=== PATIENT | female | born 1985 | race Caucasian/White ===

== ENCOUNTER 2019-12-30 16:52 | Observation (INO) | payer OTHER, SELFPAY ==
[2019-12-30 17:23] VITALS: BP 90/78; PULSE 104
[2019-12-30 17:31] VITALS: BP 101/60; PULSE 92
[2019-12-30 17:42] LABS: Add Urine Microscopic? YES; Appearance Urine Cloudy (Clear); Bacteria Urine 4+ /hpf; Bilirubin Urine Negative (Negative); Blood Urine Negative (Negative); Color Urine Yellow (Yellow); Glucose Urine UA Negative (Negative); Ketones Urine Negative (Negative); Leukocyte Esterase Ur 2+ LEU/UL (Negative); Nitrate Urine Negative (Negative); Protein Urine Negative (Negative); Specific Grav Ur 1.008 (1.001-1.035); Squamous Epithelial Cell Urine Many /hpf (Few); Urobilinogen Urine Negative mg/dL (<2.0)
[2019-12-30 17:43] VITALS: BMI 49.4
[2019-12-30 18:01] VITALS: BP 107/72; PULSE 92
[2019-12-30 18:21] VITALS: BP 102/54; PULSE 83
[2019-12-30 18:29] VITALS: TEMP 36.8
[2019-12-30 19:47] LABS: Fetal Fibronectin Negative
[2019-12-30] MEDS: NITROFURANTOIN MONOHYD MACROCR 100 MG CAP PO (21:03)
--- NOTE | 2019-12-31 04:06 | PC.NURSE ---
203912/30/19 Pt contractions resolved. Pt voices no complaints.
--- NOTE | 2019-12-31 04:08 | PC.NURSE ---
205412/30/19 Results and update to Dr. Bhakta.
--- NOTE | 2020-01-11 13:00 | PM.OBTRLD ---
OB - Triage/Final Diagnosis Evaluation Laboratory results: Laboratory Tests 12/30/19 12/30/19 17:29 17:59 Urine Color Yellow Urine Appearance Cloudy H Urine pH 6.0 Ur Specific [place] 1.008 Urine Protein Negative Urine Glucose (UA) Negative Urine Ketones Negative Ur Blood (Man) Negative Urine Nitrate Negative Urine Bilirubin Negative Urine Urobilinogen Negative Leukocyte Esterase Rfl 2+ H Urine RBC 6-10 H Urine WBC 7-9 H Ur Squamous Epith Cells Many H Urine Bacteria 4+ H Fibronectin Negative Final Diagnosis (1) Pelvic pain affecting : Code(s): O26.899 - Other specified related conditions, unspecified trimester; R10.2 - Pelvic and perineal pain Status: Acute (2) UTI (urinary tract infection) during : Code(s): O23.40 - Unspecified infection of urinary tract in , unspecified trimester Status: Acute
== END 2019-12-30 21:20 | disposition home or self-care (01) ==
PROVIDERS: Admitting Provider Obstetrics & Gynecology; PCP Internal Medicine; Visit Provider Obstetrics & Gynecology
DX: O26.892 Other specified pregnancy related conditions, second trimester (principal); R10.2 Pelvic and perineal pain; O23.43 Unspecified infection of urinary tract in pregnancy, third trimester; Z3A.31 31 weeks gestation of pregnancy
CPT/HCPCS: 81001; 82731; 87086; 87088; A9270; G0378; G0379

== ENCOUNTER 2020-01-26 11:24 | Outpatient (RCR) | payer OTHER, SELFPAY ==
[2020-01-08 08:15] VITALS: BP 119/63; PULSE 102
[2020-01-10 08:53] VITALS: BP 127/71; PULSE 107
[2020-01-15 08:06] VITALS: BP 135/86; PULSE 100
[2020-01-22 09:20] VITALS: BP 134/72; PULSE 82
--- NOTE | ~2020-01-26 | US_ITS ---
EXAMINATION: US OB BPP wo non-stress EXAM DATE: 01/26/2020 12:22 INDICATION: Gestational diabetes. 3rd trimester. TECHNIQUE: Pelvic obstetrical transabdominal sonogram was performed by a technologist. There are mu ltiple grayscale and Doppler images available for interpretation. Comparison is made to prior examina tion from 01/22/2020. FINDINGS: There is a single fetus identified in vertex presentation with a heart rate of 154 beats pe r minute. The placenta is located in the anterior position. There is no sonographic evidence of retr oplacental hemorrhage identified. BIOPHYSICAL PROFILE (performed by the technologist) breathing (30 sec sustained breathing in 30 minutes): 2 out of 2 movement (3 gross body movements in 30 minutes): 2 out of 2 tone (one episode of uqhftha-ybfhfyakl-kycukfv limb movement): 2 out of 2 Amniotic fluid pocket (2 cm): 2 out of 2 Total score: 8 out of 8 IMPRESSION: 1. Single fetus with heart rate of 154 bpm. 2. Normal biophysical profile score of 8 out of 8. Reviewed, dictated and finalized at location A. RAL CLAIMS AGENT
--- NOTE | ~2020-01-26 | US_ITS ---
US OB BPP wo non-stress DATE: 01/22/2020 09:06 INDICATION: Type 2 diabetes TECHNIQUE: Real-time imaging and Doppler analysis COMPARISON: None FINDINGS: Live dominguez intrauterine gestation, fetus in vertex presentation, longitudinal lie. Feta l heart rate of 135 bpm. Anterior placenta. Subjectively normal amount of amniotic fluid. Amniotic fl uid pocket of up to 4.6 cm is noted. BIOPHYSICAL PROFILE reported by aerospace physiological technician: breathin out of 2 movement: 2 out of 2 tone: 2 out of 2 Amniotic fluid pocket: 2 out of 2 Total score: 8 out of 8 IMPRESSION: Normal biophysical profile score of 8 out of 8 Reviewed, dictated and finalized at Location A. Reviewed, dictated and finalized at location B. D SUPERVISOR
[2020-01-26 11:57] VITALS: BP 133/74
== END 2020-02-11 07:37 | disposition home or self-care (01) ==
LOC: ANHOBOP 11:24
PROVIDERS: PCP Internal Medicine; Visit Provider Obstetrics & Gynecology
DX: O09.293 Supervision of pregnancy with other poor reproductive or obstetric history, third trimester (principal); Z3A.32 32 weeks gestation of pregnancy; Z3A.33 33 weeks gestation of pregnancy; O24.419 Gestational diabetes mellitus in pregnancy, unspecified control; O36.63X0 Maternal care for excessive fetal growth, third trimester, not applicable or unspecified; Z3A.34 34 weeks gestation of pregnancy
CPT/HCPCS: 59025; 76819

== ENCOUNTER 2020-01-27 17:03 | Outpatient (CLI) | payer OTHER, SELFPAY ==
[2020-01-27 17:31] VITALS: BP 120/82; PULSE 103
[2020-01-27 17:46] VITALS: BP 116/77; PULSE 98
[2020-01-27 17:59] LABS: Basophils Percent Auto 0.3 % (0.2-1.2); Eosinophils Absolute Auto 0.1 K/mm3 (0-0.3); Eosinophils Percent Auto 1.1 % (0-4.4); Hematocrit 30.1 % (37.0-47.0); Hemoglobin 9.7 g/dL (12.0-15.0); Immature Granulocyte Absolute 0.05 K/mm3 (0.00-0.031); Immature Granulocyte Percent A 0.4 % (0-0.5); Lymphocytes Absolute Auto 2.82 K/mm3 (0.9-3.2); Lymphocytes Percent Auto 24.7 % (18.3-44.2); Mean Corpuscular HGB Conc 32.2 g/dl (32-36); Mean Corpuscular Hemoglobin 27.9 pg (26-34); Mean Corpuscular Volume 86.5 fl (80-100); Mean Platelet Volume 10.7 fl (7.4-10.4); Monocytes Absolute Auto 0.5 K/mm3 (0.1-0.6); Monocytes Percent Auto 4.7 % (2.6-8.5); Neutrophils Absolute Auto 7.9 K/mm3 (1.3-6.7); Neutrophils Percent Auto 68.8 % (45.5-73.1); Platelet Count Result 287 k/mm3 (150-375); Red Blood Count 3.48 M/mm3 (4.2-5.4); Red Cell Distribution Width 15.3 % (11.5-14.5); White Blood Count 11.4 K/mm3 (4.5-10.0)
[2020-01-27 18:01] VITALS: BP 130/82; PULSE 96
[2020-01-27 18:08] LABS: Add Urine Microscopic? YES; Appearance Urine Cloudy (Clear); Bacteria Urine 3+ /hpf; Bilirubin Urine Negative (Negative); Blood Urine 2+ (Negative); Color Urine Yellow (Yellow); Glucose Urine UA Negative (Negative); Ketones Urine Trace mg/dL (Negative); Leukocyte Esterase Ur 3+ LEU/UL (NEGATIVE); Mucus Urine Heavy /lpf; Nitrate Urine Negative (Negative); Protein Urine 2+ mg/dL (Negative); Specific Grav Ur 1.026 (1.001-1.035); Squamous Epithelial Cell Urine Many /hpf (Few); Urobilinogen Urine Negative mg/dL (<2.0); WBC Clumps Urine Present /HPF; WBC Urine >75 /hpf (0-3)
[2020-01-27 18:14] LABS: Alanine Aminotransferase 10 U/L (4-35); Albumin Level 3.3 g/dL (3.5-5.1); Alkaline Phosphatase 165 U/L (38-126); Anion Gap 10 mmol/L (8-16); Aspartate Amino Transferase 16 U/L (14-36); Bilirubin,Total 0.2 mg/dL (0.2-1.3); Blood Urea Nitrogen 7 mg/dL (7-17); Calcium 8.6 mg/dL (8.4-10.2); Carbon Dioxide 20 mmol/L (22-30); Chloride 106 mmol/L (98-107); Estimated Glomerular Filt Rate > 60; Glucose 137 mg/dL (65-105); Potassium 3.7 mmol/L (3.4-5.0); Sodium 136 mmol/L (137-145); Uric Acid 5.3 mg/dL (2.5-7.5)
[2020-01-27 18:16] VITALS: BP 129/78; PULSE 91
[2020-01-27 18:31] VITALS: BP 130/81; PULSE 96
[2020-01-27 19:01] VITALS: BP 115/75; PULSE 82
[2020-01-27 19:01] LABS: Total Protein Urine Random 11 mg/dL
[2020-01-27 19:03] LABS: Creatinine Urine 70.7 mg/dL
== END 2020-01-27 19:35 | disposition home or self-care (01) ==
LOC: ANHOBOP 17:08 → ANHOBPP 17:09
PROVIDERS: PCP Internal Medicine; Visit Provider Obstetrics & Gynecology
DX: O13.3 Gestational [pregnancy-induced] hypertension without significant proteinuria, third trimester (principal); Z3A.35 35 weeks gestation of pregnancy
CPT/HCPCS: 36415; 59025; 80053; 81001; 82570; 84156; 84550; 85025; 87086; 99199

== ENCOUNTER 2020-01-28 05:55 | Outpatient (CLI) | payer OTHER, SELFPAY ==
[2020-01-28] VITALS (11 sets, daily range): BP systolic 118–143; BP diastolic 65–88; PULSE 81–93
== END 2020-01-28 10:25 | disposition home or self-care (01) ==
LOC: ANHOBOP 06:01 → ANHOBPP 08:00
PROVIDERS: PCP Internal Medicine; Visit Provider Obstetrics & Gynecology
DX: R51.9 Headache, unspecified (principal); O13.9 Gestational [pregnancy-induced] hypertension without significant proteinuria, unspecified trimester; Z3A.00 Weeks of gestation of pregnancy not specified
CPT/HCPCS: 59025; 99199

== ENCOUNTER 2020-02-10 07:41 | Inpatient (IN) | payer OTHER, SELFPAY ==
[2020-02-10] VITALS (49 sets, daily range): BP systolic 117–140; BP diastolic 68–99; PULSE 56–145; RESP 13–18; TEMP 36.1–36.8; O2SAT 92–100; BMI 50.3
[2020-02-10 08:48] LABS: Basophils Percent Auto 0.4 % (0.2-1.2); Eosinophils Absolute Auto 0.2 K/mm3 (0-0.3); Eosinophils Percent Auto 2.1 % (0-4.4); Hematocrit 33.6 % (37.0-47.0); Hemoglobin 10.8 g/dL (12.0-15.0); Immature Granulocyte Absolute 0.04 K/mm3 (0.00-0.031); Immature Granulocyte Percent A 0.4 % (0-0.5); Lymphocytes Absolute Auto 2.42 K/mm3 (0.9-3.2); Lymphocytes Percent Auto 23.4 % (18.3-44.2); Mean Corpuscular HGB Conc 32.1 g/dl (32-36); Mean Corpuscular Hemoglobin 28.2 pg (26-34); Mean Corpuscular Volume 87.7 fl (80-100); Monocytes Absolute Auto 0.5 K/mm3 (0.1-0.6); Monocytes Percent Auto 5.1 % (2.6-8.5); Neutrophils Absolute Auto 7.1 K/mm3 (1.3-6.7); Neutrophils Percent Auto 68.6 % (45.5-73.1); Platelet Count Result 277 k/mm3 (150-375); Red Blood Count 3.83 M/mm3 (4.2-5.4); White Blood Count 10.4 K/mm3 (4.5-10.0)
[2020-02-10 09:01] LABS: Alanine Aminotransferase 11 U/L (4-35); Albumin Level 3.3 g/dL (3.5-5.1); Alkaline Phosphatase 173 U/L (38-126); Anion Gap 6 mmol/L (8-16); Aspartate Amino Transferase 19 U/L (14-36); Bilirubin,Total 0.4 mg/dL (0.2-1.3); Blood Urea Nitrogen 10 mg/dL (7-17); Calcium 8.6 mg/dL (8.4-10.2); Carbon Dioxide 23 mmol/L (22-30); Chloride 107 mmol/L (98-107); Estimated CRCL calculation 134 ml/min; Estimated Glomerular Filt Rate > 60; Glucose 88 mg/dL (65-105); Sodium 136 mmol/L (137-145)
--- NOTE | 2020-02-10 09:12 | WPDANESEPPF ---
Anes - Initial Pre Proc Eval Procedure: Operation Date: 02/10/20 10:30 Proposed Procedures p Primary Section - Bren Bhakta MD Date/Time: 02/10/20 09:12 Surgeon: Bren Bhakta MD Pre Op Diagnosis: scheduled c/section Patient Data Age: 34 Gender: F Height: 1.63 m Weight: 133 kg Last Vital Signs Pulse 82 02/10/20 08:16 BP 132/75 02/10/20 08:16 Allergies Allergy/AdvReac Type Severity Reaction Status Date / Time No Known Allergies Allergy Unknown Verified 01/23/16 13:21 Home Medications Medication Instructions Recorded Confirmed Type Chewable Iron 1 tablet PO DAILY 12/30/19 02/10/20 History Daily 1 tablet PO DAILY 12/30/19 02/10/20 History Humulin N NPH Insulin KwikPen 8 unit SUBCUT QAM 12/30/19 02/10/20 History Humulin N NPH Insulin KwikPen 46 unit SUBCUT HS 12/30/19 02/10/20 History aspirin 1 tablet PO DAILY 12/30/19 01/28/20 History insulin lispro 6 unit SUBCUT QAM 12/30/19 02/10/20 History insulin lispro 8 unit SUBCUT QACDINNER 12/30/19 02/10/20 History insulin lispro 8 unit SUBCUT QACLUNCH 12/30/19 02/10/20 History metformin 1,000 mg PO BID 12/30/19 02/10/20 History Laboratory Tests 02/10/20 02/10/20 02/10/20 08:40 08:40 08:40 WBC Pending RBC Pending Hgb Pending Hct Pending MCV Pending MCH Pending MCHC Pending RDW Pending Plt Count Pending MPV Pending Immature Gran % (Auto) Pending Neut % (Auto) Pending Lymph % (Auto) Pending [place] % (Auto) Pending Eos % (Auto) Pending Baso % (Auto) Pending Lymph # (Auto) Pending [place] # (Auto) Pending Eos # (Auto) Pending Baso # (Auto) Pending Abs Immat Gran (auto) Pending Absolute Neuts (auto) Pending Absolute Nucleated RBC Pending Nucleated RBC % Pending Sodium 136 mmol/L L mmol/L (137-145) Potassium 4.0 mmol/L mmol/L (3.4-5.0) Chloride 107 mmol/L mmol/L (98-107) Carbon Dioxide 23 mmol/L mmol/L (22-30) Anion Gap 6 mmol/L L mmol/L (8-16) BUN 10 mg/dL mg/dL (7-17) Creatinine 0.70 mg/dL mg/dL (0.7-1.0) Estim Creat Clear Calc 134 ml/min ml/min Estimated GFR > 60 (59 - ) Glucose 88 mg/dL mg/dL (65-105) Calcium 8.6 mg/dL mg/dL (8.4-10.2) Total Bilirubin 0.4 mg/dL mg/dL (0.2-1.3) AST 19 U/L U/L (14-36) ALT 11 U/L U/L (4-35) Alkaline Phosphatase 173 U/L H U/L (38-126) Total Protein 7.0 g/dL g/dL (6.3-8.2) Albumin 3.3 g/dL L g/dL (3.5-5.1) RPR Pending Patient hx anesthesia problems: none Family hx anesthesia problems: none PMFSH Past Medical History Medical History (Updated 02/10/20 @ 09:17 by Ishan Gold MD) macrosomia GDM (gestational diabetes mellitus) Family History Family History Mother Diabetes mellitus Social History Social History Smoking status: Never smoker Second hand tobacco smoke exposure: No Substance use: never Gender identity (if verbalized by the patient): Female Sexual Orientation (if Verbalized by the Patient): Straight or Heterosexual Spiritual care concerns: No Anes - Eval Final PreProcedure Day of Procedure 02/10/20 09:12 Patient weight: obese Heart: regular rate and rhythm Lungs: clear to auscultation and normal air movement Airway: Mallampati scale class II Neurological: alert and oriented Last oral intake: >/= 8 hours ASA classification: III Emergent: no Anesthetic plan: proceed Anesthesia type and monitoring: regional spinal Informed Consent: The patient's anesthetic plan and its attendant risks and bene
--- NOTE | 2020-02-10 09:16 | LDADM ---
This patient, Fernanda Louise, was admitted to Labor/Delivery/Recovery 119 on 02/10/20 at 07:41. Plans for labor, pain management and were discussed with patient. Patient/family oriented to hospital policies and general routines including ID bracelet, bed and alarms, visiting hours, pain management, procedures, bathroom and other care routines, personal items, smoking policy, room service/diet and guest tray routines, infant security routines, and visiting hours. Patient/Family are encouraged to report perceived risks to care and to ask questions if they do not understand what they are told or what they should do. See OBIX for further documentation.
[2020-02-10] MEDS: LACTATED RINGERS 1,000 ML 999 ML IV CONT (09:19)
[2020-02-10] MEDS: LACTATED RINGERS 1,000 ML 125 ML IV CONT ×2 (09:35→16:45)
--- NOTE | 2020-02-10 09:55 | PM.IMHP ---
H&P: HPI History of Present Illness Date/Time: 02/10/20 09:55 Chief complaint: scheduled c/section Narrative: Fernanda Louise is a 34 yo @ 37.0wks ([place] 03/02/20) who presents for scheduled primary c/s. She has uncontrolled type 2 DM; on insulin. She has been following with [facility] where growth US on 02/05/20 showed EFW 4649g. She is also a gestational hypertensive. She has been undergoing routine testing with reassuring findings. Her is complicated by: - T2DM on meds: metformin 1000mg BID, NPH 8 qAM + 42 qhs, Lispro - Macrosomic fetus; EFW of 4649g on 02/05/20 - Gestational hypertension - Morbid obesity; BMI 51 - Left pyelectasis measuring 11mm Review of Systems Constitutional: Constitutional: Denies body ache(s) and Denies fever(s) Eyes: Eyes: Denies blurry vision Cardiovascular: Cardiovascular: Denies chest pain and Denies rapid heart rate Respiratory: Respiratory: Denies cough and Denies dyspnea Gastrointestinal: Gastrointestinal: Denies abdominal pain, Denies nausea and Denies vomiting Genitourinary: Genitourinary: Denies abnormal vaginal bleeding and Denies vaginal discharge Neurologic: Denies headache(s) Psychiatric: Psychiatric: Denies anxiety [facility] Past Medical History Medical History macrosomia GDM (gestational diabetes mellitus) Family History Family History Mother Diabetes mellitus Social History Social History Smoking status: Never smoker Second hand tobacco smoke exposure: No Substance use: never Gender identity (if verbalized by the patient): Female Sexual Orientation (if Verbalized by the Patient): Straight or Heterosexual Spiritual care concerns: No Meds Home Medications and Allergies Home Medications Medication Instructions Recorded Confirmed Type Chewable Iron 1 tablet PO DAILY 12/30/19 02/10/20 History Daily 1 tablet PO DAILY 12/30/19 02/10/20 History Humulin N NPH Insulin KwikPen 8 unit SUBCUT QAM 12/30/19 02/10/20 History Humulin N NPH Insulin KwikPen 46 unit SUBCUT HS 12/30/19 02/10/20 History aspirin 1 tablet PO DAILY 12/30/19 01/28/20 History insulin lispro 6 unit SUBCUT QAM 12/30/19 02/10/20 History insulin lispro 8 unit SUBCUT QACDINNER 12/30/19 02/10/20 History insulin lispro 8 unit SUBCUT QACLUNCH 12/30/19 02/10/20 History metformin 1,000 mg PO BID 12/30/19 02/10/20 History Allergies Allergy/AdvReac Type Severity Reaction Status Date / Time No Known Allergies Allergy Unknown Verified 01/23/16 13:21 Vital Signs Vital Signs - 24 hr 02/10/20 08:02 02/10/20 08:16 Pulse Rate 89 82 Blood Pressure 136/85 132/75 Exam Const: General: cooperative, comfortable and no acute distress Nutritional Appearance: obese Resp: Effort & Inspection: normal respiratory effort and able to speak in complete sentences Cardio: Rate: regular rate GI: GI Palp: Yes Soft to palpation and No Tenderness to palpation present (GI) : Other: FHT's: 135/ mod phil/ +accels/ no decels - cat 1 TOCO: irregular ctx's Position: cephalic Membranes: intact, normal fluid Skin: General skin exam: normal color Neuro: General: patient oriented x3 Extrem: General: normal to inspection Psych: Appearance: grossly normal Affect: normal affect Attitude: cooperative H&P: Results Labs Labs: Short CBC 02/10/20 Range/Units 08:40 WBC 10.4 H (4.5-10.0) K/mm3 Hgb 10.8 L (12.0-15.0) g/dL Hct 33.6 L (37.0-47.0) % Plt Count 277 (150-375) k/mm3 BMP 02/10/20 08:40 Sodium 136 L Potassium 4.0 Chloride 107 Carbon Dioxide 23 BUN 10 Creatinine 0.70 Glucose 88 Calcium 8.6 Liver Function 02/10/20 Range/Units 08:40 Total Bilirubin 0.4 (0.2-1.3) mg/dL AST 19 (14-36) U/L ALT 11 (4-35) U/L Alkaline Phosphatase
[2020-02-10] MEDS: ceFAZolin 3 GM/D5W 100 ML 100 ML IVPB (10:13)
--- NOTE | 2020-02-10 10:17 | WPDHPUPDATE1 ---
History and Physical Update Update Date/Time: 02/10/20 10:17 History and Physical has been reviewed, including an updated exam of the patient. There are NO changes in the patient's condition. Risks, benefits, and alternatives have been discussed and questions answered. Patient agrees to proceed with procedure.
--- NOTE | 2020-02-10 11:40 | PM.OBPRVD ---
OB - Delivery Note Procedure Procedure: Procedures Operation Date: 02/10/20 10:30 <No data on this case meets the specified criteria> events: Gestational Diabetes (existing, type 2 DM) and Induced HTN Intrapartal events: None Induction method: none Route of delivery: Quantitative Blood Loss: 490 Anesthesia type: Epidural Disposition: PACU Complications: None Narrative: She was counseled on all risks and benefits in detail. She was taken to the operating room where spinal epidural was placed. She was then prepped and draped in the normal sterile fashion. She received 3g Ancef and a time out was performed. A Pfannenstiel incision was made in the skin and carried down to the underlying fascia. The fascia was nicked on either side of the midline and the fascial incision was extended laterally and superiorly using scissors. The fascia was then elevated and the underlying rectus muscles were dissected off the fascia, superiorly and inferiorly. The rectus muscles were then in the midline and the peritoneum was entered bluntly. Once adequate exposure was obtained, a Mobix self retractor was placed within the abdomen. A bladder flap was created. A low transverse incision was made on the lower uterine segment and clear fluid was noted. The occiput was brought to the hysterotomy and the head was easily delivered, nuchal cord was reduced. The shoulder and body then followed without complications. The fetus had spontaneous cry and the mouth and nose were bulb suctioned. The cord was clamped and cut and the fetus was handed off to the awaiting pediatric nurse. A segment of the cord was collected for cord gases. The remaining cord blood was collected for typing. With pitocin infusing, the placenta delivered via manual extraction without complications. The uterus was then cleared out of all clots and debris using a clean, moist lap. The hysterotomy was then repaired in a running, interlocking fashion using 0 Vicryl. A second layer imbricating suture was then made using 0 Vicryl. Two additional figure of eight sutures using 0 Vicryl were placed and the hysterotomy was found to be hemostatic. Good uterine tone was also noted. The bilateral adnexa were examined and found to be normal. The pelvis was cleared of all clots and fluid. The Mobix retractor was removed from the abdomen. The peritoneum, muscle, and fascia were examined and made hemostatic with bovie cautery. The fascia was then repaired using two separate 0 Vicryl sutures in a running fashion. The subcutaneous tissue was then irrigated and made hemostatic with bovie cautery. The subcutaneous tissue was then reapproximated using 2-0 Vicryl. The skin was then closed using 4-0 Monocryl in a running subcuticular fashion. Sponge, lap, needle and instrument counts were correct at the end of the procedure x2. The patient tolerated the procedure well and was taken to recovery in a stable condition. Baby Date of : 02/10/20 Time of : 10:50 Weeks of gestation at delivery: 37 gender: Male Weight (pounds): 9 Weight (ounces): 13 presentation: vertex position: Left Occiput Anterior Placenta delivery description: Manual Removal cord vessel description: 3 Vessels, Nuchal Cord (x1), Loose and Reduced score one minute: 8 score five minutes: 9
[2020-02-10] MEDS: OXYTOCIN 30 UNITS/NS 500 ML 30 UNITS/500 ML BAG 125 UNITS IV CONT (11:46)
[2020-02-10 13:31] LABS: Rapid Plasma Reagin Non-Reactive (NonReactive)
--- NOTE | 2020-02-10 14:24 | PC.NURSE ---
Addendum entered by Barbie Delgado RN 02/10/20 14:26: Pt. transferred to room at 1356. Original Note: Patient transferred to post room #282 per kalin. Support person present. Oriented to unit, room, information board, rooming in, admission packet and security measures. Patient verbalizes understanding.
[2020-02-10] MEDS: ONDANSETRON INJ 4 MG/2 ML VIAL (15:34)
--- NOTE | 2020-02-10 16:41 | OBPPTRN ---
1510 Patient transferred to post room #282 via stretcher. Support person present. Oriented to unit, room, information board, rooming in, admission packet and security measures. Patient verbalizes understanding.
[2020-02-10 18:24] LABS: Glucose Point of Care 119 (65-105)
[2020-02-10] MEDS: metFORMIN HCL XR 500 MG TAB.SR.24H 1000 MG PO (18:41)
[2020-02-10] MEDS: HYDROcodone/acetaminophen (*CRX) 5-325 MG TABLET 1 TAB PO (21:01)
[2020-02-10] MEDS: DOCUSATE SODIUM 100 MG CAPSULE PO (21:02)
[2020-02-11] MEDS: HYDROcodone/acetaminophen (*CRX) 5-325 MG TABLET 1 TAB PO (02:32)
[2020-02-11 04:45] VITALS: BP 110/68; PULSE 80; RESP 16; TEMP 36.3; O2SAT 95
[2020-02-11 06:13] LABS: Basophils Percent Auto 0.3 % (0.2-1.2); Eosinophils Absolute Auto 0.2 K/mm3 (0-0.3); Eosinophils Percent Auto 2.2 % (0-4.4); Hemoglobin 9.1 g/dL (12.0-15.0); Immature Granulocyte Absolute 0.04 K/mm3 (0.00-0.031); Immature Granulocyte Percent A 0.4 % (0-0.5); Lymphocytes Absolute Auto 2.32 K/mm3 (0.9-3.2); Lymphocytes Percent Auto 22.3 % (18.3-44.2); Mean Corpuscular HGB Conc 31.4 g/dl (32-36); Mean Corpuscular Hemoglobin 27.7 pg (26-34); Mean Corpuscular Volume 88.1 fl (80-100); Mean Platelet Volume 11.5 fl (7.4-10.4); Monocytes Absolute Auto 0.5 K/mm3 (0.1-0.6); Monocytes Percent Auto 5.1 % (2.6-8.5); Neutrophils Absolute Auto 7.3 K/mm3 (1.3-6.7); Neutrophils Percent Auto 69.7 % (45.5-73.1); Platelet Count Result 226 k/mm3 (150-375); Red Blood Count 3.29 M/mm3 (4.2-5.4); White Blood Count 10.4 K/mm3 (4.5-10.0)
--- NOTE | 2020-02-11 07:09 | WPDANLDPN2 ---
Anes-Prog Note L&D Date/Time: 02/11/20 07:09 Comfortable throughout: section Neuraxial method: spinal Epidural/Spinal procedure site: clean & non-tender Neuro status: Neuro function grossly intact. Cardiovascular status: normal Respiratory status: normal Airway patency: baseline Mental status: baseline Post-Op hydration status: normal Vital Signs: Last Vital Signs Temp 36.3 C L 02/11/20 04:45 Pulse 80 02/11/20 04:45 Resp 16 02/11/20 04:45 BP 110/68 02/11/20 04:45 Pulse Ox 95 02/11/20 04:45 Pain score (VAS): 2 I/O: Intake & Output 02/10/20 02/10/20 02/11/20 15:59 23:59 07:59 Intake Total 550 1000 Output Total 600 1700 3000 Balance -50 -700 -3000 Post-procedural complaints: none Patient feedback: Patient satisfied with anesthetic care.
--- NOTE | 2020-02-11 07:09 | WPDANLDNPN2 ---
Anes-Prog Note L&D-Neuraxial Date/Time: 02/11/20 07:09 Neuraxial medications: intrathecal PF morphine Opiod-related complaints: none Patient feedback: Patient satisfied with post-operative pain management.
[2020-02-11] MEDS: MULTIVIT/MIN/PREN/FOL AC/IRON TABLET 1 TAB PO (07:29)
[2020-02-11] MEDS: POLYSACCHARIDE IRON COMPLEX 150 MG CAPSULE PO (07:29)
[2020-02-11] MEDS: DOCUSATE SODIUM 100 MG CAPSULE PO (07:30)
[2020-02-11] MEDS: IBUPROFEN 600 MG TABLET PO ×2 (07:30→14:13)
[2020-02-11 07:40] VITALS: BP 116/79; PULSE 77; RESP 16; TEMP 36.6; O2SAT 100
[2020-02-11] MEDS: metFORMIN HCL XR 500 MG TAB.SR.24H 1000 MG PO (07:47)
[2020-02-11 08:39] LABS: Glucose Point of Care 95 (65-105)
--- NOTE | 2020-02-11 12:48 | PM.OBPNVD ---
OB - PN: Subj Subjective Date/time seen: 02/11/20 12:48 POD#1 Kelsea reports doing well today. Her pain is controlled, has cramping. She has already showered and feels better. 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 She has tolerated regular diet. She has spotaneously voided. No flatus or BM but reports hearing movement. She is ambulating w/o symptoms of anemia. Her blood sugars have been well controlled, no sliding scale insulin has been needed. She desires her son, Henrry, to get circumcised. She would like to go home this evening. No CP, SOB, MENDOZA, vision changes, N/V, fever, chills, dizziness or palpitations. OB - PN: Obj Data Labs CBC & Chem 7: 02/11/20 04:45 02/10/20 08:40 Labs: Laboratory Results - last 24 hr 02/10/20 02/10/20 02/11/20 08:40 18:22 04:45 WBC 10.4 H RBC 3.29 L Hgb 9.1 L Hct 29.0 L MCV 88.1 MCH 27.7 MCHC 31.4 L RDW 15.0 H Plt Count 226 MPV 11.5 H Immature Gran % (Auto) 0.4 Neut % (Auto) 69.7 Lymph % (Auto) 22.3 [place] % (Auto) 5.1 Eos % (Auto) 2.2 Baso % (Auto) 0.3 Lymph # (Auto) 2.32 [place] # (Auto) 0.5 Eos # (Auto) 0.2 Baso # (Auto) 0.0 Abs Immat Gran (auto) 0.04 H Absolute Neuts (auto) 7.3 H Absolute Nucleated RBC 0.0 Nucleated RBC % 0.0 POC Capillary Glucose 119 H RPR Non-reactive 02/11/20 07:41 WBC RBC Hgb Hct MCV MCH MCHC RDW Plt Count MPV Immature Gran % (Auto) Neut % (Auto) Lymph % (Auto) [place] % (Auto) Eos % (Auto) Baso % (Auto) Lymph # (Auto) [place] # (Auto) Eos # (Auto) Baso # (Auto) Abs Immat Gran (auto) Absolute Neuts (auto) Absolute Nucleated RBC Nucleated RBC % POC Capillary Glucose 95 RPR OB - PN A/P Assessment and Plan (1) Type 2 diabetes mellitus affecting in third trimester, antepartum: Code(s): O24.113 - Pre-existing type 2 diabetes mellitus, in , third trimester Status: Acute (2) S/P primary low transverse : Code(s): Z98.891 - History of uterine scar from previous surgery Status: Acute (3) Obesity affecting in third trimester: Code(s): O99.213 - Obesity complicating , third trimester Status: Acute (4) Gestational hypertension: Qualifiers: Trimester: third trimester Qualified Code(s): O13.3 - Gestational [-induced] hypertension without significant proteinuria, third trimester Code(s): O13.9 - Gestational [-induced] hypertension without significant proteinuria, unspecified trimester Status: Acute Plan day: 1 Plan: routine care and discharge home (this afternoon) Comments: - f/u in clinic in 2 wks - ER return precautions discussed - take meds as prescribed - circumcision performed w/o issue Time Spent With Patient Time: Total time spent is greater than 50% in coordination of care (as documented) at patient's floor/unit and/or counseling patient: Review of Systems Review of Systems: All systems reviewed & are unremarkable except as noted in HPI and below (HPI) Exam Const: General: cooperative, comfortable and no acute distress Nutritional Appearance: obese Resp: Effort & Inspection: normal respiratory effort and able to speak in complete sentences Auscultation: clear to auscultation bilaterally Cardio: Rate: regular rate GI: Inspection: non-distended, incision (pfannenstiel incision c/d/i covered w/ clean dressing) and Pannus present GI Palp: Yes Soft to palpation, Yes Tenderness to palpation present (GI) (appropriate) and No Guarding due to palpation present (GI) Auscultation: normal bowel sounds Skin: General skin exam: normal color Neuro: General: patient oriented x3 Extrem: General: normal to inspection Psych: Appearance: grossly normal Affect: normal affect Attitude: cooperative
[2020-02-11 13:02] LABS: Glucose Point of Care 91 (65-105)
[2020-02-11] MEDS: oxyCODONE/ACETAMINOPHEN (*CRX) 5-325 MG TABLET 1 TABLET PO (14:14)
[2020-02-12 07:53] VITALS: BP 131/64; PULSE 71; RESP 20; TEMP 36.8; O2SAT 99
--- NOTE | 2020-02-20 12:19 | PM.OBDSVD ---
DS: Admitting Diagnosis Admitting Diagnosis Admitting Diagnosis: Type 2 diabetes affecting Large for gestational age Gestational hypertension DS: Discharge Diagnosis Discharge Diagnosis (1) Gestational hypertension: Qualifiers: Trimester: third trimester Qualified Code(s): O13.3 - Gestational [-induced] hypertension without significant proteinuria, third trimester Code(s): O13.9 - Gestational [-induced] hypertension without significant proteinuria, unspecified trimester Status: Acute (2) S/P primary low transverse : Code(s): Z98.891 - History of uterine scar from previous surgery Status: Acute (3) Obesity affecting in third trimester: Code(s): O99.213 - Obesity complicating , third trimester Status: Acute (4) Type 2 diabetes mellitus affecting in third trimester, antepartum: Code(s): O24.113 - Pre-existing type 2 diabetes mellitus, in , third trimester Status: Acute (5) macrosomia: Qualifiers: Fetus number: single or unspecified fetus Trimester: third trimester Qualified Code(s): O36.63X0 - Maternal care for excessive growth, third trimester, not applicable or unspecified Code(s): O36.60X0 - Maternal care for excessive growth, unspecified trimester, not applicable or unspecified Status: Acute OB - DS: Summary OB Procedures : PIH Mgmt, Ultrasound and Other (MFM co-management; weekly testing for T2DM + GHTN) OB Procedures Intrapartum: low cervical, transverse OB Procedures: : None Peripartum Data Infant Delivery Method: Section Procedures: Procedures Operation Date: 02/10/20 10:30 Actual Procedures Side Surgeon p Primary Section Not Applicable Bren Bhakta MD complications: none [place] 1: Gender: Male Disposition of : home Status at Discharge Functional status at discharge: independent ambulation Overall status at discharge: patient is back to baseline Time Spent with Patient Time attestation: Total time spent providing and/or coordinating discharge services: Time spent: Less than 30 minutes Exam Const: General: cooperative, healthy appearing, comfortable and no acute distress Nutritional Appearance: obese Resp: Effort & Inspection: normal respiratory effort and able to speak in complete sentences Auscultation: clear to auscultation bilaterally Cardio: Rate: regular rate GI: Inspection: incision (covered w/ clean dressing) and Pannus present GI Palp: Yes Soft to palpation and No Tenderness to palpation present (GI) Auscultation: normal bowel sounds : Other: fundus firm at umbilicus Skin: General skin exam: normal color Neuro: General: patient oriented x3 Extrem: General: normal to inspection Psych: Appearance: grossly normal Affect: normal affect Attitude: cooperative DS: Data Data Completed and Pending Completed studies during hospitalization: Pending at discharge 02/10/20 11:22 Surgical [PTH] Routine Discharge Plan Discharge Attending physician on discharge: Bren Bhakta Consulting providers: Ishan Gold Discharging Clinician: Bren Bhakta Anticipated Discharge Date/Time: 02/11/20 18:00 Patient Disposition: Home, Self-Care Activity: may shower, no straining, follow weight bearing status and pelvic rest Diet: diabetic Wound Care Instructions: other - see discharge instructions Discharge Instructions: Education: Mom and Baby Guide Given to: Patient Follow-Up: Call your delivering provider's office for an appointment to be seen in: 2 weeks Mom and baby should come to the [facility] for the follow-up appointment. Appointment Date/Time: Monday02/12/2020 at 8:00 am Call [phone] if you are unable to keep your appointment time. BREAST CA
== END 2020-02-11 17:15 | disposition home or self-care (01) | DRG 788 ==
LOC: ANHLDR 07:44 → ANHOB2 14:03
PROVIDERS: Admitting Provider Obstetrics & Gynecology; PCP Internal Medicine; Visit Provider Obstetrics & Gynecology
PROC: 10D00Z1 Extraction of Products of Conception, Low, Open Approach (ICD-10-PCS; CPT 59514; principal; 2020-02-10 10:30)
DX: O13.4 Gestational [pregnancy-induced] hypertension without significant proteinuria, complicating childbirth (principal); O36.63X0 Maternal care for excessive fetal growth, third trimester, not applicable or unspecified; O99.214 Obesity complicating childbirth; E66.01 Morbid (severe) obesity due to excess calories; O24.12 Pre-existing type 2 diabetes mellitus, in childbirth; E11.65 Type 2 diabetes mellitus with hyperglycemia; Z3A.37 37 weeks gestation of pregnancy; Z37.0 Single live birth; Z79.4 Long term (current) use of insulin; O69.81X0 Labor and delivery complicated by cord around neck, without compression, not applicable or unspecified
CPT/HCPCS: 36415; 80053; 85025; 86592; 86850; 86900; 86901; 88307; A9270; J0131; J0690; J2274; J2405; J2590; J7120

== ENCOUNTER 2021-11-11 09:56 | Outpatient (CLI) | payer OTHER, SELFPAY ==
--- NOTE | ~2021-11-11 | XR_ITS ---
EXAMINATION: XR hip RT min 2V DATE: 11/11/2021 10:31 INDICATION: Right hip pain TECHNIQUE: Two views of right hip were obtained. COMPARISON: None. FINDINGS: Bone alignment is normal. There is no fracture. The soft tissues are unremarkable. IMPRESSION: 1. No acute osseous abnormality. Reviewed, dictated and finalized at location B.
--- NOTE | ~2021-11-11 | XR_ITS ---
EXAMINATION: XR shoulder RT min 2V INDICATION: Right shoulder pain TECHNIQUE: Four views of the right shoulder are submitted. COMPARISON: None FINDINGS: There is a subtle linear heterotopic ossification projecting adjacent to the greater tubero sity. Glenohumeral and acromioclavicular joint spaces are normal. Soft tissues are unremarkable. IMPRESSION: 1. Subtle linear heterotopic ossification projecting adjacent to the greater tuberosity which could r eflect tendinous calcification or less likely tiny avulsion injury. Recommend correlation for tendern ess at this site. Reviewed, dictated and finalized at location [facility]. IMPRESSION: 1. Subtle linear heterotopic ossification projecting adjacent to the greater tu berosity which could reflect tendinous calcification or less likely tiny avulsi on injury. Recommend correlation for tenderness at this site.
== END 2021-11-11 09:57 | disposition home or self-care (01) ==
PROVIDERS: PCP Internal Medicine; Visit Provider Internal Medicine
DX: M25.519 Pain in unspecified shoulder (principal)
CPT/HCPCS: 73030; 73502

== ENCOUNTER 2022-11-17 18:19 | Emergency (ER) | payer OTHER, SELFPAY ==
--- NOTE | ~2022-11-17 | CT_ITS ---
CT of the Abdomen and Pelvis: Indication: Abdominal pain Technique: 2.5 mm axial scans were obtained through the abdomen and pelvis following intravenous adm inistration of 100 cc of Omnipaque 350. Dose reduction technique was used on this scan by utilizing a utomated exposure control and iterative reconstruction technique. The dose-length product (DLP) was 1 517.81 mGy-cm. COMPARISON: 01/10/2006 Findings: Scans through the lung bases are unremarkable. The liver, spleen, pancreas, gallbladder, adrenals and kidneys are within normal limits. No evidence of aortic aneurysm. No lymphadenopathy. No bowel obstruction or bowel wall thickening. There is no evidence to suggest acute appendicitis. Images through the pelvis were performed. Urinary bladder unremarkable. No adnexal mass seen. No asci bridgett. Impression: No significant abnormalities seen. Reviewed, dictated and finalized at [facility]. Impression: No significant abnormalities seen.
[2022-11-17 18:44] VITALS: BP 149/89; PULSE 94; RESP 18; TEMP 37; O2SAT 97
[2022-11-17 21:22] VITALS: BP 157/94; PULSE 102; RESP 18; TEMP 37.1; O2SAT 99
[2022-11-18 00:33] VITALS: BP 151/101; PULSE 85; RESP 16; O2SAT 100
--- NOTE | 2022-11-18 00:34 | ED.ABDPAIN ---
HPI - Abdominal Pain General Chief Complaint: Abdominal Pain <HOLGER Wilkinson Last Filed: 11/18/22 04:25> Stated Complaint: rlq pain <HOLGER Wilkinson Last Filed: 11/18/22 04:25> Time Seen by Provider: 11/18/22 00:03 <HOLGER Wilkinson Last Filed: 11/18/22 04:25> Source: patient <HOLGER Wilkinson Last Filed: 11/18/22 04:25> Mode of arrival: ambulatory <HOLGER Wilkinson Last Filed: 11/18/22 04:25> Limitations: no limitations <HOLGER Wilkinson Last Filed: 11/18/22 04:25> History of Present Illness HPI narrative: Patient is a 37-year-old female who presents to the ED with report of right upper quadrant abdominal pain. Patient reports she woke up 2 nights ago with pain in her periumbilical region and right lower quadrant. She states pain was severe at that time. She took Tylenol and ibuprofen at that time and pain improved somewhat. Pain has been persistent however. Worse with sitting upright. Difficult finding comfortable position. She reported having nausea and vomiting today and a low-grade fever, prompted her presentation. She reported having diarrhea 2 days ago, denies any rectal bleeding or melena. Denies urinary symptoms. She has not taken anything for pain today. <HOLGER Wilkinson Last Filed: 11/18/22 04:25> Related Data Allergies/Adverse Reactions: Allergies Allergy/AdvReac Type Severity Reaction Status Date / Time No Known Allergies Allergy Unknown Verified 06/22/21 10:31 <HOLGER Wilkinson Last Filed: 11/18/22 04:25> Review of Systems Review of Systems: CONSTITUTIONAL: Denies fever, chills, or sweats. CARDIOVASCULAR: Denies chest pain. RESPIRATORY: Denies dyspnea. GASTROINTESTINAL: See HPI. GENITOURINARY: Denies dysuria or hematuria. MUSCULOSKELETAL: Denies back pain, joint pain, or myalgia. <Celestina Gomes PA-C - Last Filed: 11/18/22 04:25> All systems reviewed & are unremarkable except as noted in HPI and below <Celestina Gomes PA-C - Last Filed: 11/18/22 04:25> [facility] Past Medical History Medical History: Medical History Blindness Left eye enucleated macrosomia GDM (gestational diabetes mellitus) depression <Celestina Gomes PA-C - Last Filed: 11/18/22 04:25> Surgical History Surgical History: Surgical History H/O enucleation of left eyeball <Celestina Gomes PA-C - Last Filed: 11/18/22 04:25> Family History Family History: Family History Mother Diabetes mellitus Other Cerebrovascular accident Grandparent Rheumatoid arthritis Grandparent Atrial fibrillation <Celestina Gomes PA-C - Last Filed: 11/18/22 04:25> Social History Social History: Social History Smoking status: Never smoker Second hand tobacco smoke exposure: No Substance use: never Gender identity (if verbalized by the patient): Female Sexual Orientation (if Verbalized by the Patient): Straight or Heterosexual Spiritual care concerns: No <Celestina Gomes PA-C - Last Filed: 11/18/22 04:25> Exam Narrative: GENERAL: Well appearing, morbidly obese with BMI of 49.2, non-toxic, in no acute distress. HEAD: Normocephalic, atraumatic. EYES: L eye strabismus. NECK: Supple. No adenopathy, no masses. RESPIRATORY: Airway patent, respirations nonlabored. Clear to auscultation bilaterally, no rales, rhonchi, wheezing. CARDIOVASCULAR: Regular rate and rhythm without murmurs, rubs, or gallops. Peripheral pulses 2+ and equal bilaterally. ABDOMINAL: Soft, focal tenderness in right lower quadrant. Mild tenderness in right mid abdomen, suprapubic region. Nondistended, no h
[2022-11-18 00:39] LABS: Basophils Percent Auto 0.4 % (0.2-1.2); Eosinophils Absolute Auto 0.2 K/mm3 (0-0.3); Eosinophils Percent Auto 1.5 % (0-4.4); Hemoglobin 11.5 g/dL (12.0-15.0); Immature Granulocyte Absolute 0.04 K/mm3 (0.00-0.031); Immature Granulocyte Percent A 0.4 % (0-0.5); Lymphocytes Absolute Auto 3.58 K/mm3 (0.9-3.2); Lymphocytes Percent Auto 31.7 % (18.3-44.2); Mean Corpuscular HGB Conc 30.3 g/dl (32-36); Mean Corpuscular Hemoglobin 25.1 pg (26-34); Mean Corpuscular Volume 82.8 fl (80-100); Monocytes Absolute Auto 0.5 K/mm3 (0.1-0.6); Monocytes Percent Auto 4.4 % (2.6-8.5); Neutrophils Percent Auto 61.6 % (45.5-73.1); Platelet Count Result 361 k/mm3 (150-375); Red Blood Count 4.59 M/mm3 (4.2-5.4); Red Cell Distribution Width 14.2 % (11.5-14.5); White Blood Count 11.3 K/mm3 (4.5-10.0)
[2022-11-18 00:45] LABS: Appearance Urine Clear (Clear); Bacteria Urine 1+ /hpf; Bilirubin Urine Negative (Negative); Blood Urine Negative (Negative); Color Urine Yellow (Yellow); Glucose Urine UA Negative (Negative); Ketones Urine Trace mg/dL (Negative); Leukocyte Esterase Ur Trace LEU/UL (Negative); Nitrate Urine Negative (Negative); Non Pathogenic Casts 0-2; Protein Urine Negative (Negative); RBC Urine 0-2 /hpf (0-2); Specific Grav Ur 1.024 (1.001-1.035); Squamous Epithelial Cell Urine Few /hpf (Few); Urobilinogen Urine 0.2 mg/dL (<2.0); pH Urine 5.5 (5.0-9.0)
[2022-11-18 00:46] LABS: Add Urine Microscopic? YES
[2022-11-18] MEDS: ONDANSETRON INJ 4 MG/2 ML VIAL IV PUSH ×2 (01:12→05:06)
[2022-11-18] MEDS: SODIUM CHLORIDE 0.9% IV 1,000 ML 999 ML IV CONT (01:13)
[2022-11-18] MEDS: MORPHINE SULFATE (*CRX) 4 MG/ML INJ IV PUSH (01:13)
[2022-11-18 03:02] VITALS: BP 130/84; PULSE 71; RESP 16; O2SAT 99
[2022-11-18 03:05] LABS: Alanine Aminotransferase 18 U/L (6-35); Albumin Level 3.9 g/dL (3.5-5.1); Alkaline Phosphatase 138 U/L (38-126); Anion Gap 8 mmol/L (8-16); Aspartate Amino Transferase 18 U/L (14-36); Bilirubin,Total 0.4 mg/dL (0.2-1.3); Blood Urea Nitrogen 10 mg/dL (7-17); Calcium 8.5 mg/dL (8.4-10.2); Carbon Dioxide 26 mmol/L (22-30); Chloride 102 mmol/L (98-107); Estimated CRCL calculation 128 ml/min; Estimated Glomerular Filt Rate > 60; Glucose 200 mg/dL (65-110); Lipase 31 U/L (23-300); Potassium 3.8 mmol/L (3.4-5.0); Sodium 136 mmol/L (137-145)
[2022-11-18 05:15] VITALS: BP 132/68; PULSE 75; RESP 16; O2SAT 100
[2022-11-18 14:16] LABS: Estimated CRCL calculation 128 ml/min; Estimated Glomerular Filt Rate > 60
== END 2022-11-18 05:15 | disposition home or self-care (01) ==
PROVIDERS: Physician Assistant; Emergency Provider Emergency Medicine; PCP Internal Medicine
DX: N30.00 Acute cystitis without hematuria (principal); R10.11 Right upper quadrant pain; E11.9 Type 2 diabetes mellitus without complications; Z90.01 Acquired absence of eye; Z79.84 Long term (current) use of oral hypoglycemic drugs
CPT/HCPCS: 36415; 74177; 80053; 81001; 81025; 82565; 83690; 85025; 87077; 87086; 87186; 96361; 96374; 96375; 96376; 99284; J2270; J2405; J7030; Q9967

== ENCOUNTER → 2022-12-05 10:20 | Outpatient (CLI) | payer OTHER, SELFPAY ==
--- NOTE | ~2022-12-05 | US_ITS ---
US abdomen limited DATE: 12/05/2022 10:43 INDICATION: Right upper quadrant abdominal pain, nausea, bloating, loose stools TECHNIQUE: Real-time imaging of liver, pancreas, gallbladder COMPARISON: 11/18/2022 CT abdomen pelvis FINDINGS: No hepatic or pancreatic space-occupying mass lesion is evident. Normal hepatopedal portal venous flow direction. The common bile duct measures 3 mm, normal. There are mobile filling defects of the gallbladder lumen consistent with cholelithiasis. No gallblad manuel wall thickening or pericholecystic abnormal fluid collection. Negative sonographic Wright's sign. IMPRESSION: Cholelithiasis Reviewed, dictated and finalized at [facility]. Reviewed, dictated and finalized at [facility]. IMPRESSION: Cholelithiasis
== END ==
PROVIDERS: PCP Internal Medicine; Visit Provider Surgery
DX: R10.11 Right upper quadrant pain (principal); K80.20 Calculus of gallbladder without cholecystitis without obstruction
CPT/HCPCS: 76705

== ENCOUNTER 2022-12-15 07:51 | Outpatient (CLI) | payer OTHER, SELFPAY ==
[2022-12-15 09:32] LABS: Amylase < 30 U/L (30-110)
== END 2022-12-15 07:52 | disposition home or self-care (01) ==
LOC: ANHSURGERY 07:56
PROVIDERS: PCP Internal Medicine; Visit Provider Surgery
DX: K80.20 Calculus of gallbladder without cholecystitis without obstruction (principal); Z01.818 Encounter for other preprocedural examination
CPT/HCPCS: 36415; 82150; 86850; 86900; 86901

== ENCOUNTER 2022-12-19 02:13 | Day surgery (SDC) | payer OTHER, SELFPAY ==
[2022-12-13 14:18] VITALS: BMI 48.0
--- NOTE | 2022-12-13 14:25 | PC.NURSE ---
Report to the Outpatient Waiting Room, entrance under the green pavilion located off [facility], at time 11:30 on date 12/19/22. Planned Procedure Time: 1:30. Time changes happen often and if your time is changed the preop area will call you the afternoon before. - You and your visitor will be asked to self-screen and do not enter if you have any COVID symptoms. - A mask is optional within the hospital at this time. Patients may have clear liquids (water, carbonated beverages, clear teas, apple juice) until 3 hours prior to surgery (10:30) with a maximum of 20 ounces. - No food from midnight until time of surgery Take the following medications with a SIP of water the morning of surgery: ALPRAZOLAM IF NEEDED DO NOT STOP ANY OF YOUR OTHER PRESCRIPTION MEDICATIONS PRIOR TO SURGERY ?EXCEPT THE FOLLOWING Medications to discontinue per physician: N/A Date to take last dose: N/A Please no make-up, nail occitan, hairspray, perfume, deodorant, or body powder the day of surgery. No jewelry (including any body piercings) or valuables the day of surgery, leave them at home. Please take a shower or bath the night before, or the morning of, surgery with an antibacterial soap. Wear comfortable, loose fitting clothing. - Jewelry must be removed prior to entering the operating room. Rings and piercings that are not removed may be cut off. - The hospital will not accept responsibility for valuables. - Please leave all valuables, including medications, at home the day of surgery. If you are going home after surgery, a licensed operator and truck driver must drive you home. - NO public transportation without another adult if you receive anesthesia. - We recommend that an adult stay with you for 24 hours following discharge. - We also recommend that you do not drive, make important decision, drink alcoholic beverages, or take any drugs that were not prescribed by your health care provider for at least 24 hours after your discharge time. Follow any additional instructions given to you from your surgeon. If you or anyone in your household have experienced Covid symptoms in the past week, please notify your surgeon or the nurse liaison at the phone number below for possible testing. Telephone instructions given to PT - LUANNE MEJIA and asked if any additional questions and then verbalized understanding. Patient advised to call surgeon office or pre surgery nurse liaison [phone] if any additional questions.
[2022-12-19] VITALS (10 sets, daily range): BP systolic 114–153; BP diastolic 72–93; PULSE 74–93; RESP 14–30; TEMP 36.6–37.1; O2SAT 95–100; BMI 47.0
[2022-12-19] MEDS: LACTATED RINGERS 1,000 ML 30 ML IV CONT ×2 (11:02→13:23)
[2022-12-19] MEDS: ACETAMINOPHEN 500 MG TABLET 1000 MG PO (11:02)
[2022-12-19] MEDS: KETOROLAC 15 MG/ML VIAL (*BKC) IV PUSH ×2 (11:02→13:02)
--- NOTE | 2022-12-19 11:24 | P.PNAN_ITS ---
Anes - Initial Pre Proc Eval Procedure: Operation Date: 12/19/22 12:00 Proposed Procedures p Laparoscopic Cholecystectomy, Possible Open - William Cuello MD Date/Time: 12/19/22 11:24 Surgeon: William Cuello MD Pre Op Diagnosis: Symptomatic Cholelithiasis Patient Data Age: 37 Gender: F Height: 1.63 m Weight: 124.3 kg Allergies Allergy/AdvReac Type Severity Reaction Status Date / Time No Known Allergies Allergy Unknown Verified 12/19/22 10:39 Home Medications Medication Instructions Recorded Confirmed Type alprazolam 0.5 mg tablet 0.5 mg PO DAILY PRN Anxiety 12/13/22 12/19/22 History famotidine 20 mg tablet (Pepcid) 20 mg PO DAILY PRN Acid Reflux 12/13/22 12/19/22 History Patient hx anesthesia problems: none Family hx anesthesia problems: none Results Review: All pre-operative results and documents have been reviewed as part of the pre- operative evaluation. [facility] Past Medical History Medical History Anxiety Blindness Left eye enucleated Depression Diabetes macrosomia GDM (gestational diabetes mellitus) depression Surgical History Surgical History H/O enucleation of left eyeball History of eye surgery Previous section Family History Family History Mother Diabetes mellitus Other Cerebrovascular accident Grandparent Rheumatoid arthritis Grandparent Atrial fibrillation Other Kidney disease Social History Social History Smoking status: Never smoker Second hand tobacco smoke exposure: No Alcohol intake: current Alcohol use details: RARE Substance use: never Substance use type: does not use Living arrangements: with family Gender identity (if verbalized by the patient): Female Sexual Orientation (if Verbalized by the Patient): Straight or Heterosexual Spiritual care concerns: No Anes - Eval Final PreProcedure Day of Procedure 12/19/22 11:24 Patient weight: morbidly obese Heart: regular rate and rhythm Lungs: clear to auscultation Airway: Mallampati scale class II Neurological: alert and oriented Last oral intake: >/= 8 hours ASA classification: III Emergent: no Anesthetic plan: proceed Anesthesia type and monitoring: general ETT and standard monitoring Results Review: All pre-operative results and documents have been reviewed as part of the pre- operative evaluation. Informed Consent: The patient's anesthetic plan and its attendant risks and benefits were discussed with the patient/family/POA. Questions were solicited and answers prov ided to the satisfaction of the patient/family/POA.
[2022-12-19] MEDS: SCOPOLAMINE 1.5 MG PATCH TRANSDERM (11:51)
--- NOTE | 2022-12-19 12:01 | WPDHPUPDATE1 ---
History and Physical Update Update Date/Time: 12/19/22 12:01 History and Physical has been reviewed, including an updated exam of the patient. There are NO changes in the patient's condition. Risks, benefits, and alternatives have been discussed and questions answered. Patient agrees to proceed with procedure.
[2022-12-19] MEDS: ceFAZolin 3 GM/D5W 100 ML 100 ML IVPB (12:09)
[2022-12-19] MEDS: LIDO 1%/EPINEPHRINE 1:100,000 20 ML VIAL INFILTRATE (12:29)
--- NOTE | 2022-12-19 13:32 | W.PM.PROC2 ---
Procedure Note - Detailed Date of Procedure 12/19/22 Pre-op Diagnosis Symptomatic Cholelithiasis Post-op Diagnosis Same Procedure Performed Laparoscopic cholecystectomy Surgeon William Cuello MD Milking Worker Starla Rangel [facility] Anesthesia General Indications Patient is a 37-year-old female who has been having frequent significant right upper quadrant epigastric abdominal pain. Changing her diet to a low-fat diet has not seemed to change her symptoms. Abdominal ultrasound shows gallstones but no thickening of the gallbladder to suggest acute or chronic cholecystitis. She presents now for elective laparoscopic cholecystectomy. Findings The gallbladder was distended without adhesions of the stomach, omentum, or duodenum to the gallbladder wall. No acute or chronic thickening of the gallbladder was seen. Description of Procedure After informed consent was obtained patient brought to the operating room where she was placed supine position and general endotracheal anesthesia was administered. The abdomen was then prepped and draped usual sterile fashion. Time-out was then performed correctly identifying the patient as well as the procedure to be performed. She was given 3g of Ancef for IV antibiotics. I 1st entered the abdomen left upper quadrant utilizing a 5mm Optiview port with a direct optical insertion. Once inside the abdomen insufflated to adequate pneumoperitoneum of 15mmHg of CO2. Patient a few adhesions of the omentum to the lower abdominal wall below the umbilicus. These did not obscure my view of the upper abdomen so I placed a 5mm periumbilical trocar port under direct visualization without difficulty. The laparoscopic was then switched over to the periumbilical trocar port and looking to the upper portions of the abdomen could see the gallbladder which was distended but without adhesions to the stomach, duodenum, or omentum. Additional laparoscopic ports to include a 10mm epigastric trocar port and 2 right lateral subcostal 5mm trocar ports were then all placed under direct visualization. The gallbladder was then held with a laparoscopic grasper at the dome and elevated over the right half of the entrance right shoulder. Second grasper was used to hold the gallbladder at the infundibulum. I then stripped down the visceroperitoneum along the infundibular gallbladder until I identified the cystic duct. Cystic duct was then dissected out circumferentially. Cystic artery was identified and dissected out circumferentially as well. Posterior wall the gallbladder at the infundibulum dissected free of the liver to the critical view was obtained. At this point I then placed 2 clips proximal cystic duct 2 clips distally high on infundibular gallbladder. The cystic duct was divided with Endo Rebekah a similar fashion cystic artery was clipped and divided as well. The gallbladder is resected off the liver utilized electrocautery. No gallstones or bile were spilled during the dissection. Once the gallbladder is free from the liver it was placed into an Endo-Catch bag and brought out through the epigastric port site. The gallbladder and contents were then sent to pathology for examination. I then irrigated out the gallbladder fossa on the right upper quadrant with sterile saline solution. Hemostasis was good there is no evidence of bile leak. I then removed all the trocar ports under visualization all port sites appeared hemostatic. I then allowed the abdomen decompressed. The epigastric 10mm trocar port fascial defect was then closed utilizing 0 Vicryl suture in a figure-eight fashion. The skin edges in all the port sites were then approximated utilizing a running subcuticular 4-0 Monocryl suture. The incisions were then cleaned the skin glue sterile dressings were applied. The patient tolerated the procedure well no complications. All sponges, needles, and instrument counts were correct at the end procedure. EBL was _10__cc. The patient was awakened a
[2022-12-19] MEDS: ONDANSETRON INJ 4 MG/2 ML VIAL IV PUSH (13:46)
[2022-12-19] MEDS: diphenhydrAMINE HCl INJ 50 MG/ML VIAL 25 MG IV PUSH ×2 (13:50→14:13)
[2022-12-19] MEDS: fentaNYL CITRATE INJ (*CRX) 100 MCG/2 ML VIAL 25 MCG IV PUSH ×2 (13:59→14:11)
[2022-12-19] MEDS: oxyCODONE HCL (*CRX) 5 MG TAB IR PO (15:02)
== END 2022-12-19 15:43 | disposition home or self-care (01) ==
PROVIDERS: PCP Internal Medicine; Visit Provider Surgery
PROC: 0FT44ZZ Resection of Gallbladder, Percutaneous Endoscopic Approach (ICD-10-PCS; CPT 47562; principal; 2022-12-19 12:00)
DX: K82.8 Other specified diseases of gallbladder (principal); E11.9 Type 2 diabetes mellitus without complications; F41.9 Anxiety disorder, unspecified; F32.A Depression, unspecified; E66.01 Morbid (severe) obesity due to excess calories; Z68.42 Body mass index [BMI] 45.0-49.9, adult
CPT/HCPCS: 47562; 36415; 82150; 86850; 86900; 86901; 88304; A9270; C1713; J0330; J0690; J1100; J1200; J1885; J2250; J2405; J2704; J3010; J7120